=== PATIENT | male | born 1950 | race Caucasian/White ===

== ENCOUNTER → 2018-09-01 | Outpatient (CLI) | payer BC, MEDICARE ==
[~2018-09-01] MED LIST: ALBU8.5H8 INH; CETI10CA PO; DIPH25CA61 PO; GLUC1TAB53 PO; KRIL1CAP PO; LEVO125T5 PO; MELA1TAB8 PO; MOME13HF INH; MONT10TA6 PO; MULT-717 PO; PRED50TA PO
== END | disposition home or self-care (01) ==
LOC: STAR 08:52
PROVIDERS: ATTEND Internal Medicine
DX: Z01.818 Encounter for other preprocedural examination (principal); J45.40 Moderate persistent asthma, uncomplicated
CPT/HCPCS: 93005

== ENCOUNTER 2018-09-05 06:05 | Day surgery (SDC) | payer BC, MEDICARE ==
[~2018-09-05] VITALS: Ht 190.5 cm; Wt 93.1 kg
[2018-09-05 06:50] VITALS: BP 142/81
[2018-09-05] MEDS ORDERED: SODIUM CHLORIDE 0.9% 1,000 ML IV SCH (07:10)
[2018-09-05] MEDS ORDERED: FENTANYL PF 100 MCG/2ML ONE (07:15)
[2018-09-05] MEDS ORDERED: MIDAZOLAM 1 MG/ML, 5ML ONE ×2 (07:15)
[2018-09-05] MEDS ORDERED: DIPHENHYDRAMINE 50 MG/ML, 1ML ONE (07:15)
[2018-09-05] MEDS ORDERED: GLYCOPYRROLATE 0.4 MG/2 ML, 2ML ONE (07:15)
[2018-09-05] MEDS ORDERED: ALBUTEROL SULFATE 2.5 MG/3 ML ONE (11:10)
[2018-09-05] MEDS ORDERED: LIDOCAINE 2%, 20ML ONE (11:18)
== END 2018-09-05 12:00 | disposition home or self-care (01) ==
LOC: OUT 06:05
PROVIDERS: ATTEND Internal Medicine
DX: J45.40 Moderate persistent asthma, uncomplicated (principal); E03.9 Hypothyroidism, unspecified
CPT/HCPCS: 94640; 99152; 99153; J1200; J2250; J3010; J7030

== ENCOUNTER → 2018-09-15 | Outpatient (CLI) | payer MEDICARE | END | disposition home or self-care (01) | LOC: RAD 09:23 | PROVIDERS: ATTEND Internal Medicine | DX: J45.40 Moderate persistent asthma, uncomplicated (principal); R91.8 Other nonspecific abnormal finding of lung field | CPT/HCPCS: 71046 ==

== ENCOUNTER 2018-10-31 07:12 | Day surgery (SDC) | payer MEDICARE, BC ==
[~2018-10-31] VITALS: Ht 190.5 cm; Wt 92.9 kg
[2018-10-31 07:52] VITALS: BP 131/72
== END 2018-10-31 14:30 | disposition home or self-care (01) ==
LOC: OUT 07:12
PROVIDERS: ATTEND Internal Medicine
DX: J45.50 Severe persistent asthma, uncomplicated (principal); J30.9 Allergic rhinitis, unspecified; E03.9 Hypothyroidism, unspecified; Z79.890 Hormone replacement therapy; Z79.899 Other long term (current) drug therapy
CPT/HCPCS: 31661; 94640; 99152; 99153; C1886; J1200; J2250; J3010; J7030; J7613; 94060